=== PATIENT | female | born 1945 | race Caucasian/White ===

== ENCOUNTER → 2020-07-13 10:20 | Outpatient (CLI) | payer MEDICARE, OTHER, SELFPAY ==
[2020-06-04 10:43] VITALS: BMI 23.8
--- NOTE | 2020-07-13 12:36 | PFTCOMP ---
COMPLETE PULMONARY FUNCTION TEST INTERPRETATION Brief HPI: Patient is a 75 year old female, currently under the care of Shayla Pak, who presents to [facility] for complete pulmonary function tests secondary to diagnosis of asthma. Respiratory therapist reports good effort and reproducible results. Interpretation: Forced expiration spirometry shows no large airways obstructive ventilatory defect with an FEV1 of 96% predicted. There is no significant bronchodilator response by strict ATS criteria. Spirograms are of good quality and plateau normally. The respiratory flow volume loop shows a normal pattern. Lung volumes by body plethysmography show a normal total lung capacity at 3.9 L, 94% predicted. All other lung volumes are within normal limits. Diffusion capacity by carbon monoxide is normal at 79% predicted. The airway resistance is normal. No previous pulmonary function tests were available for review. Impression: These pulmonary function tests are within normal limits
== END ==
PROVIDERS: PCP Internal Medicine; Referring Provider Nurse Practitioner Acute Care; Visit Provider Nurse Practitioner Acute Care
DX: J45.909 Unspecified asthma, uncomplicated (principal)
CPT/HCPCS: 94060; 94726; 94729

== ENCOUNTER → 2020-07-14 12:27 | Outpatient (CLI) | payer MEDICARE, OTHER, SELFPAY ==
[2020-06-04 10:43] VITALS: BMI 23.8
[2020-07-14 12:44] VITALS: PULSE 66; PULSE 70; PULSE 77; PULSE 83; PULSE 87; PULSE 88; PULSE 90; O2SAT 95; O2SAT 96; O2SAT 97
--- NOTE | 2020-07-14 13:56 | WT_ITS ---
PSN 6 Minute Walk Test 6 Minute Walk Test 6 Minute Walk Test: 6 Minute Walk Test PSN:6-Minute Walk Test Start: 07/14/20 12:44 Freq: Status: Active Protocol: [id number] Document 07/14/20 12:44 [facility] (Rec: 07/14/20 12:47 [facility] [id number]) 6 Minute Walk Test Date Performed 07/14/20 Time Performed 12:30 Height 5 ft 1 in Weight: 54.431 kg Weight in Pounds 120.[address]: Shayla Pak NP Assistive device used: None Pre-test Oxygen Delivery Method Room Air Pulse Ox (%) 95 Pulse Rate (60-100 beats/min) 66 Dyspnea Josiah Scale (0-10) 0 1st minute Oxygen Delivery Method Room Air Pulse Ox (%) 96 Pulse Rate (60-100 beats/min) 77 Dyspnea Josiah Scale (0-10) 0 Number of Rests Taken 0 2nd minute Oxygen Delivery Method Room Air Pulse Ox (%) 95 Pulse Rate (60-100 beats/min) 83 Dyspnea Josiah Scale (0-10) 1 Number of Rests Taken 0 3rd minute Oxygen Delivery Method Room Air Pulse Ox (%) 95 Pulse Rate (60-100 beats/min) 87 Dyspnea Josiah Scale (0-10) 2 Number of Rests Taken 0 4th minute Oxygen Delivery Method Room Air Pulse Ox (%) 96 Pulse Rate (60-100 beats/min) 88 Dyspnea Josiah Scale (0-10) 2 Number of Rests Taken 0 5th minute Oxygen Delivery Method Room Air Pulse Ox (%) 96 Pulse Rate (60-100 beats/min) 87 Dyspnea Josiah Scale (0-10) 2 Number of Rests Taken 0 6th minute Oxygen Delivery Method Room Air Pulse Ox (%) 97 Pulse Rate (60-100 beats/min) 90 Dyspnea Josiah Scale (0-10) 2 Number of Rests Taken 0 Post-test Oxygen Delivery Method Room Air Pulse Ox (%) 97 Pulse Rate (60-100 beats/min) 70 Dyspnea Josiah Scale (0-10) 0 Full Laps Walked 20 Partial Lap, Number of Tiles Walked 17 Total Distance Walked (ft) 1197 Interpretation Interpretation: Patient was able to travel 1197 feet over the course of 6 minutes on room air with no assistive devices or breaks. The patient experienced no significant desaturation or tachycardia during testing. These findings are consistent with a normal walking oximetry. Recommendations Recommendations: No supplemental oxygen is indicated at this time.
== END ==
PROVIDERS: PCP Internal Medicine; Referring Provider Nurse Practitioner Acute Care; Visit Provider Nurse Practitioner Acute Care
DX: J45.909 Unspecified asthma, uncomplicated (principal)
CPT/HCPCS: 94618